=== PATIENT | female | born 1995 | race African-American/Black ===

== ENCOUNTER 2022-11-28 12:27 | Emergency (ER) | payer OTHER ==
[~2022-11-28] VITALS: Ht 165.1 cm; Wt 91.0 kg
[2022-11-28] MEDS ORDERED: KETOROLAC 30MG/ML VIAL IV STA (13:49)
[2022-11-28] MEDS ORDERED: AMPICILLIN SOD/SULBACTAM NA 3 G in SODIUM CHLORIDE 0.9% 100 ML IV STA (13:50)
[2022-11-28 14:24] LABS: BASOPHILS % 0.3 % (0.0-2.0); EOSINOPHILS % 0.6 % (0.0-5.0); HEMATOCRIT. 34.5 % (36.0-48.0); HEMOGLOBIN. 11.9 g/dL (12.0-16.0); LYMPHOCYTES % 18.8 % (20.0-50.0); MEAN CORPUSCULAR HEMOGLOBIN 30.5 pg (28.0-32.0); MEAN CORPUSCULAR VOLUME 88.2 fL (81.0-99.0); NEUTROPHILS % 70.3 % (40.0-76.0); PLATELET 338 x1000/uL (130-400); RED BLOOD CELL COUNT 3.92 mill/uL (4.2-5.4); RED CELL DISTRIBUTION WIDTH 12.3 % (11.6-14.6)
[2022-11-28 14:38] LABS: HCG SCREEN NEGATIVE
[2022-11-28 14:43] LABS: CHLORIDE 106 mEq/L (98-107)
[2022-11-28] MEDS ORDERED: IOHEXOL-350 100 ML BOTTLE ONE (15:47)
[2022-11-28 16:59] VITALS: BP 97/54
== END 2022-11-28 16:59 | disposition left against medical advice (07) ==
LOC: ER 12:27
DX: K04.7 Periapical abscess without sinus (principal)
CPT/HCPCS: 36415; 70487; 80053; 81025; 84703; 85025; 96365; 96375; 99285; J0295; J1885; J7050; Q9967; Z7610; 20600

== ENCOUNTER 2023-05-23 09:45 | Emergency (ER) | payer MEDICAID, OTHER ==
[~2023-05-23] VITALS: Ht 165.1 cm; Wt 95.0 kg
[2023-05-23] MEDS ORDERED: ACETAMINOPHEN 325MG TABLET PO ONE (10:00)
[2023-05-23 10:06] VITALS: O2SAT 100
[2023-05-23] MEDS ORDERED: TOPUD PO (10:58)
[2023-05-23 12:03] VITALS: BP 132/52; PULSE 79; RESP 16; TEMP 98.2
== END 2023-05-23 12:19 | disposition home or self-care (01) ==
LOC: ER 09:45
DX: S62.601A Fracture of unspecified phalanx of left index finger, initial encounter for closed fracture (principal); W18.30XA Fall on same level, unspecified, initial encounter; Y93.89 Activity, other specified; Y92.89 Other specified places as the place of occurrence of the external cause; Y99.8 Other external cause status
CPT/HCPCS: 29130; 73120; 99283